=== PATIENT | male | born 1955 | race Caucasian/White ===

== ENCOUNTER 2021-09-28 04:32 | Emergency (ER) | payer MEDICARE ==
[2021-09-28] MEDS ORDERED: methylPREDNISolone Sodium Succinate 125 MG/2 ML SDV IM ONE (04:40)
[2021-09-28] MEDS ORDERED: Ondansetron 4 MG Tab.DIS PO ONE (04:40)
[2021-09-28] MEDS ORDERED: Sodium Chloride 0.9% 1,000 ML IV ONE (04:49)
[2021-09-28] MEDS ORDERED: Acetaminophen 325 MG Tab PO ONE (04:52)
[2021-09-28] MEDS ORDERED: Acetaminophen 325 MG Tab ONE (05:16)
[2021-09-28 05:32] LABS: ESTIMATED GFR 62 mL/min (>60)
== END 2021-09-28 05:57 | disposition home or self-care (01) ==
LOC: LB.ED 04:32
DX: T78.40XA Allergy, unspecified, initial encounter (principal); E11.9 Type 2 diabetes mellitus without complications; I10 Essential (primary) hypertension; Z88.0 Allergy status to penicillin; Z88.7 Allergy status to serum and vaccine; Z79.84 Long term (current) use of oral hypoglycemic drugs; Z79.899 Other long term (current) drug therapy
CPT/HCPCS: 36415; 80053; 82947; 85025; 96360; 96372; 99283; A9270; J2930; J7030; Q0162

== ENCOUNTER 2021-11-01 23:04 | Emergency (ER) | payer MEDICARE ==
[2021-11-02] MEDS ORDERED: methylPREDNISolone Sodium Succinate 125 MG/2 ML SDV IM ONE (00:30)
== END 2021-11-02 00:35 | disposition home or self-care (01) ==
LOC: LB.ED 23:04
DX: T78.40XA Allergy, unspecified, initial encounter (principal); E78.00 Pure hypercholesterolemia, unspecified; I10 Essential (primary) hypertension; K21.9 Gastro-esophageal reflux disease without esophagitis; E11.9 Type 2 diabetes mellitus without complications; Z88.0 Allergy status to penicillin; Z88.7 Allergy status to serum and vaccine; Z88.8 Allergy status to other drugs, medicaments and biological substances; Z79.899 Other long term (current) drug therapy
CPT/HCPCS: 96372; 99283; J2930

== ENCOUNTER 2022-04-22 17:11 | Emergency (ER) | payer MEDICARE ==
[2022-04-22] MEDS ORDERED: methylPREDNISolone Sodium Succinate 125 MG/2 ML SDV IM ONE (17:36)
[2022-04-22] MEDS ORDERED: methylPREDNISolone Sodium Succinate 125 MG/2 ML SDV ONE (17:43)
[2022-04-22] MEDS ORDERED: diphenhydrAMINE 50 MG Cap PO ONE (18:46)
[2022-04-22] MEDS ORDERED: diphenhydrAMINE 50 MG Cap ONE (18:56)
== END 2022-04-22 19:26 | disposition home or self-care (01) ==
LOC: LB.ED 17:11 → SUPCPDRO 17:11 → LB.ED 19:26
DX: L50.9 Urticaria, unspecified (principal); L29.9 Pruritus, unspecified; E78.00 Pure hypercholesterolemia, unspecified; I10 Essential (primary) hypertension; K21.9 Gastro-esophageal reflux disease without esophagitis; E11.9 Type 2 diabetes mellitus without complications; Z88.8 Allergy status to other drugs, medicaments and biological substances; Z88.0 Allergy status to penicillin; Z88.7 Allergy status to serum and vaccine; Z91.018 Allergy to other foods; Z79.84 Long term (current) use of oral hypoglycemic drugs; Z79.899 Other long term (current) drug therapy
CPT/HCPCS: 96372; 99282; A9270-GY; J2930

== ENCOUNTER 2024-12-15 21:17 | Emergency (ER) | payer MEDICARE ==
[2024-12-15] MEDS ORDERED: Fluticasone NASAL Spray 16 GM Bottle ONE (22:30)
[2024-12-15 22:42] LABS: INFLUENZA A NAA NEGATIVE (NEGATIVE); INFLUENZA B NAA NEGATIVE (NEGATIVE); RESPIRATORY SYNCYTIAL VIR NAA NEGATIVE (NEGATIVE)
[2024-12-15 22:43] LABS: CORONAVIRUS COVID-19 NAA NEGATIVE (NEGATIVE)
== END 2024-12-15 22:55 | disposition home or self-care (01) ==
LOC: LB.ED 21:17
DX: J32.9 Chronic sinusitis, unspecified (principal); J06.9 Acute upper respiratory infection, unspecified; I10 Essential (primary) hypertension; Z90.49 Acquired absence of other specified parts of digestive tract; Z79.899 Other long term (current) drug therapy; Z88.0 Allergy status to penicillin; Z79.84 Long term (current) use of oral hypoglycemic drugs
CPT/HCPCS: 87637; 99283; A9270-GY